=== PATIENT | female | born 1945 | race Caucasian/White ===

== ENCOUNTER 2022-10-22 08:17 | Outpatient (CLI) | payer MEDICARE, SELFPAY ==
--- NOTE | ~2022-10-22 | MM_ITS ---
EXAMINATION: MM screening irwin BI w asa HISTORY: Screening mammogram TECHNIQUE: Craniocaudal and mediolateral oblique 3-D tomosynthesis images were obtained and synthetic 2-D images were generated. CAD analysis was submitted and interpreted. COMPARISON: No prior mammogram is available for comparison at this institution. BREAST PARENCHYMAL COMPOSITION: There are scattered areas of fibroglandular density. FINDINGS: Scattered benign-appearing calcifications are present. RIGHT BREAST: No suspicious mass, calcification, or architectural distortion are identified to sugges t malignancy. LEFT BREAST: There are small masses in the periareolar aspect of the upper outer breast. IMPRESSION: 1. Small masses in the periareolar aspect of the upper outer left breast. which may represent the pat ient's baseline however no comparison is currently available. 2. Comparison with prior mammograms is necessary. BI-RADS Category 0: Incomplete: Needs comparison with prior mammograms. Reviewed, dictated and finalized at location A. FFIN MACHINE OPERATOR IMPRESSION: 1. Small masses in the periareolar aspect of the upper outer left breast. which may represent the patient's baseline however no comparison is currently availa ble. 2. Comparison with prior mammograms is necessary. BI-RADS Category 0: Incomplete: Needs comparison with prior mammograms.
--- NOTE | ~2022-10-22 | DEXA_ITS ---
Bone Density Report Name: AMITA SHABAZZ Age: 77 Sex: Female Ethnicity: White Date of : 1945 Indication: postmenopausal; screening for osteoporosis; hysterectomy; Referring Provider: HEATHER, MATTHEW Siegel Study: Bone densitometry was performed. Exam Date: October 22, 2022 Accession number: [id number] Bone Density: Region BMD T-score Z-score Classification AP Spine(L1-L4) 1.033 -0.1 2.5 Normal Femoral Neck (Left) 0.668 -1.6 0.6 Osteopenia Total Hip (Left) 0.771 -1.4 0.6 Osteopenia Femoral Neck (Right) 0.695 -1.4 0.9 Osteopenia Total Hip (Right) 0.716 -1.9 0.2 Osteopenia Total Hip Mean 0.743 -1.7 0.4 Osteopenia World Health Organization criteria for BMD impression classify patients as: Normal (T-score at or above -1.0), Osteopenia (T-score between -1.0 and -2.5), or Osteoporosis (T-score at or below -2.5). 10-year Fracture Risk(1): Major Osteoporotic Fracture 13% Hip Fracture 3.3% Reported Risk Factors: [place] (), Neck BMD=0.668, BMI=23.2 (1) FRAX(R) Version 3.08. Fracture probability calculated for an untreated patient. Fracture probability may be lower if the patient has received treatment. Clinical Information Provided by Patient: Has used the following medications: Vitamin D, Calcium Has the following medical conditions: Hysterectomy Patient maximum height was 61 Menopause Age: 38 No regular weight bearing exercise Onset of menses at age 12 Number of children 1 Impression: The patient has low bone mass, based on the Right Total Hip T-score. The patient has an estimated ten-year risk of hip fracture of 3.3% and an estimated ten-year risk of major fracture of 13%, based on the WHO FRAX algorithm. Discussion: BONE DENSITY IS LOW AT ONE OR MORE SKELETAL SITES. THE PATIENT'S BMD AND CLINICAL RISK FACTORS CONTRIBUTE TO THIS PATIENT'S INCREASED RISK OF FRACTURE. This patient's lowest T-score is low at one or more skeletal sites. It meets the World Health Organization's (WHO) criteria for ?low bone mass? (T-score between -1.0 and -2.5). The patient's 10-year risk of hip fracture as calculated by FRAX exceeds the threshold where pharmacological therapy is recommended by the National Osteoporosis Foundation (NOF). However, all treatment decisions require clinical judgment and consideration of individual patient factors, including patient preferences, comorbidities, previous drug use, risk factors not captured in the FRAX model (e.g., frailty, falls, vitamin D deficiency, increased bone turnover, interval significant decline in bone density) and possible under or overestimation of fracture risk by FRAX. The patient should follow a healthful lifestyle (good nutrition with adequate calcium and vitamin D, and appropriate weight-bearing exercise). Follow-Up: Consi
== END 2022-10-22 08:18 | disposition home or self-care (01) ==
LOC: ANHIMG 08:32
PROVIDERS: Visit Provider Internal Medicine
DX: Z12.31 Encounter for screening mammogram for malignant neoplasm of breast (principal); Z78.0 Asymptomatic menopausal state; R92.8 Other abnormal and inconclusive findings on diagnostic imaging of breast; M85.852 Other specified disorders of bone density and structure, left thigh; M85.851 Other specified disorders of bone density and structure, right thigh
CPT/HCPCS: 77063; 77067; 77080

== ENCOUNTER 2022-11-16 12:58 | Outpatient (CLI) | payer MEDICARE, SELFPAY ==
--- NOTE | ~2022-11-16 | MMUS_ITS ---
EXAMINATION: MM diagnostic irwin LT w asa, US breast LT limited HISTORY: Small masses in the periareolar area of the upper left breast were noted on 10/22/2022 screen ing mammogram TECHNIQUE: Additional 3-D tomosynthesis images of the left breast were performed and synthetic 2-D im ages were generated. CAD analysis was submitted and interpreted. High resolution upper outer quadrant left breast ultrasound was performed. COMPARISON: 10/22/2022 screening mammogram FINDINGS: MAMMOGRAPHIC FINDINGS: No suspicious mass or architectural distortion, skin thickening or retraction or malignant calcificat ion is noted. ULTRASOUND: No suspicious mass or shadowing is detected. IMPRESSION: 1. No mammographic evidence of malignancy 2. Routine annual mammographic screening is recommended BI-RADS Category 1: Negative Reviewed, dictated and finalized at location A. STOCK MACHINE LOADER IMPRESSION: 1. No mammographic evidence of malignancy 2. Routine annual mammographic screening is recommended BI-RADS Category 1: Negative
== END 2022-11-16 12:59 | disposition home or self-care (01) ==
PROVIDERS: Visit Provider Internal Medicine
DX: R92.8 Other abnormal and inconclusive findings on diagnostic imaging of breast (principal)
CPT/HCPCS: 76642; 77061; 77065; G0279

== ENCOUNTER 2025-10-10 07:53 | Outpatient (CLI) | payer MEDICARE, SELFPAY ==
--- NOTE | ~2025-10-10 | MM_ITS ---
EXAMINATION: MM screening [facility] BI w asa HISTORY: Screening TECHNIQUE: Craniocaudal and mediolateral oblique 3-D tomosynthesis images were obtained and synthetic 2-D images were generated. CAD analysis was submitted and interpreted. COMPARISON: Comparison to multiple prior studies sequentially, with oldest reviewed study dated 07/21/2018. BREAST PARENCHYMAL COMPOSITION: Not Dense: There are scattered areas of fibroglandular density. FINDINGS: There is no evidence of suspicious mass, calcification, or architectural distortion to suggest malignancy in either breast. Scattered benign-appearing calcifications are present. IMPRESSION: 1. No mammographic evidence of malignancy. 2. Recommend routine screening mammography in one year. BI-RADS Category 2: Benign finding(s). Reviewed, dictated and finalized at location B. 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
--- OUTSIDE RECORDS SUMMARY | 2025-10-10 08:00 | XMS_ITS | Encounter Summary ---
Author Organization [facility] Address [address] [place] [address] Care Team Providers Care Parliamentary Librarian Name Role Phone Sandy Coates MD Primary Care Provider [phone] Encounter Details Date Type Department Care Team (Late st Contact Info) Description 04/13/2021 Prep for Procedure [facility] [place], [place] [id number] Brown Weinstein MD [address] [id number] Social History Tobacco Use Types Packs/Day Years Used Date Smoking Tobacco: Former Cigarettes Q uit: 1997 Smokeless Tobacco: Never Alcohol Use Standard Drinks/Week Comments No 0 (1 standard drink = 0.6 oz pur e alcohol) AUDIT-C Answer Date Recorded Frequency of Alcohol Consumption Never 04/27/2019 Average Number of Drinks Not on file 019 Frequency of Binge Drinking Not on file 05/2019 Comments No Sex and Gender Information Value Date Recorded Sex Assigned at Not on file Legal Sex Female 8:34 PM CDT Gender Identity Not on file Sexual Orientation Not on file COVID-19 Exposure Response Date Recorded In the last month, have you been in contact with someone who was confirmed or suspected to have Coronavirus / COVID-19? No / Unsure 04/15/2021 8:23 AM CDT documented as of this encounter Plan of Treatment Not on file documented as of this encounter Results * CORONAVIRUS (COVID 19) PCR - [facility] (04/13/2021 9:20 AM CDT) CORONAVIRUS SARS COV 2 PCR (RESP) NEGATIVE NEGATIVE 04/13/2021 8:55 PM CDT [facility] Comment: NEGATIVE RESULTS DO NOT PRECLUDE SARS-CoV-2 INFECTION AND SHOULD NOT BE USED THE SOLE BASIS FOR PATIENT MANAGEMENT DECISIONS. NEGATIVE RESULTS MUST BE COMBINED WITH CLINICAL OBSERVATIONS, PATIENT HISTORY, AND EPIDEMIOLOGICAL INFORMATION. THE SARS-CoV-2 TEST HAS BEEN AUTHORIZED BY THE FDA UNDER AN EUA FOR USE BY AUTHORIZED LABORATORIES. FIRST TEST UNKNOWN 04/13/2021 9:42 AM CDT [facility] EMPLOYED IN HEALTHCARE UNKNOWN 04/13/2021 9:42 AM CDT [facility] SYMPTOMATIC DEFINED BY CDC UNKNOWN 04/13/2021 9:42 AM CDT [facility] HOSPITALIZATION STATUS NO 04/13/2021 9:42 AM CDT [facility] PATIENT IN ICU NO 04/13/2021 9:42 AM CDT [facility] RESIDENT OF [facility] UNKNOWN 04/13/2021 9:42 AM CDT [facility] NASOPHARYNGEAL SWAB / Unknown 04/13/2021 9:20 AM CDT Brown Weinstein MD MICROBIOLOGY - GENERAL PATRICIA MCMAHON Final Result [facility] [address] [place] [address], [place] [phone] [facility] [address] [place] [address], [place] [phone] [id number] documented in this encounter Visit Diagnoses Diagnosis Colon cancer screening- Primary Special screening for malignant neoplasms, colon documented in this encounter Additional Health Concerns Infection Onset Date Last Indicated Resolved Time COVID-19 Rule Out 04/13/2021 04/13/2021 04/13/2021 8:55 PM CDT documented as of this encounter Care Teams Parliamentary Librarian Relationship Specialty Start Date End Date Sandy Coates MD PCP - General INTERNAL MEDICINE 04/26/19 documented as of this encounter
--- OUTSIDE RECORDS SUMMARY | 2025-10-10 08:00 | XMS_ITS | Clinical Summary ---
Author Organization [facility] Address [address] [place] [address] Care Team Providers Care Chemical Pumper Name Role Phone Sandy Coates MD Primary Care Provider [phone] Allergies Active Allergy Reactions Criticality Noted Date Comments Clarithromycin Throat swelling 04/08/2021 Medications amlodipine 5 MG tablet Take 5 mg by mouth daily. Active meloxicam 7.5 MG tablet Take 7.5 mg by mouth daily. Active losartan 100 MG tablet Take 100 mg by mouth daily. Active omeprazole 20 MG capsule Take 20 mg by mouth daily. Active citalopram 20 MG tablet Take 20 mg by mouth daily. Active rosuvastatin 10 MG tablet Take by mouth nightly at bedtime. Active verapamil 240 MG ER tablet Take 240 mg by mouth daily. Active Calcium Carb-Cholecalci ferol (CALCIUM 500+D3 OR) Take by mouth 2 (two) times a day. Active aspirin EC (ASPIRIN EC) 81 MG tablet Take 81 mg by mouth daily. Active Active Problems No known active problems Family History Medical History Relation Comments Aneurysm Mother Relation Status Comments Mother Social History Tobacco Use Types Packs/Day Years [...] on file Sexual Orientation Not on file Last Filed Vital Signs Vital Sign Reading Time Taken Comments Blood Pressure 138/65 04/15/2021 10:36 AM CDT Pulse 65 04/15/2021 10:36 AM CDT Temperature 36.4 C (97.5 F) 04/15/2021 10:03 AM CDT Respiratory Rate 17 04/15/2021 10:36 AM CDT Oxygen Saturation 98% 04/15/2021 10:36 AM CDT Inhaled Oxygen Concentration - - Weight 61.2 kg (135 lb) 04/08/2021 9:38 AM CDT Height 152.4 cm (5') 04/08/2021 9:38 AM CDT Body Mass Index 26.37 04/08/2021 9:38 AM CDT Plan of Treatment Health Maintenance Due Date Last Done Comments DTaP, Tdap and Td Vaccines (1 - Tdap) 1964 Annual Medicare Wellness Visit 2008 Dexa Scan (General) 2008 RSV Immunization or 60+ Years (1 - 1-dose 75+ series) 2018 Zoster Vaccines (2 of 3) 05/28/2019 04/02/2019, 05/2019 COVID-19 Vaccine (4 - season) 2025 08/08/2023, 02/03/2021, 01/13/2021 Influenza Adult (#1) 2025 08/17/2023, 08/10/2022, 07/17/2020, Additional history exists Pneumococcal Vaccine: 50+ Years Completed 08/17/2023, 07/03/2015 Hepatitis A Vaccines Aged Out No long er eligible based on patient's age to complete this topic Meningococcal B Vaccine Aged Out No l onger eligible based on patient's age to complete this topic Meningococcal Vaccine Aged Out No nick yamil eligible based on patient's age to complete this topic RSV Immunizations Under 20 Months Aged Out No longer eligible based on patient's age to complete this topic Medical Devices Implanted Type Area Interior Design Program Chair Device Identifier Shelf Expiration Date Model / Serial / Lot Iol [employer] Zcboo - [id number] Implanted:Qty: 1 on 05/02/2019 by Petar Chavez MD at [facility] Lens Right: Eye [employer] 03/14/2023 [id number] / [id number] / Insurance [facility] MEDICARE Care Teams Chemical Pumper Relationship Specialty Start Date End Date Sandy Coates MD PCP - General INTERNAL MEDICINE 04/26/19
--- OUTSIDE RECORDS SUMMARY | 2025-10-10 08:00 | XMS_ITS | Clinical Summary ---
Author Organization [facility] Address [address] [place] [address] Care Team Providers Care Chain Saw Operator Name Role Phone Sandy Coates MD Primary Care Provider [phone] Curtis Sheikh DO Unavailable [phone] Allergies Active Allergy Reactions Criticality Noted Date Comments Clarithromycin Other (see Comments),Unknown Medications losartan (COZAAR) 100 MG Tablet 06/22/2022 Active verapamil (CALAN-SR) 240 MG Tablet Controlled Release 06/22/2022 Active citalopram (CeleXA) 20 MG Tablet 06/22/2022 Active Calcium Carb-Cholecalcif bobby 500-10 MG-MCG Tablet Take by mouth. Active amLODIPine (NORVASC) 5 MG Tablet 06/23/2022 Active aspirin EC 81 MG Tablet Delayed Response Take 81 mg by mouth daily. Active rosuvastatin (CRESTOR) 10 MG Tablet 06/23/2022 Active meloxicam (MOBIC) 7.5 MG Tablet 06/23/2022 Active omeprazole (PriLOSEC) 20 MG CAPSULE DELAYED RELEASE 06/23/2022 Active ferrous sulfate 325 (65 Fe) MG TabletIndication s:Refractory anemia, unspecified Take 1 Tablet by mouth daily. 30 Tablet 04/02/2024 Active Active Problems Problem Noted Date Diagnosed Date HTN (hypertension) 10/01/2024 Iron deficiency anemia, unspecified 04/05/2024 Refractory anemia, unspecified 10/11/2022 Encounters Date Type Department Care Team Description 09/30/2025 9:15 AM COMBINATION PRESSER Office Visit [facility] [address] [address] Neetu Peres, CLIENT SALES AND SERVICE OFFICER, REAMING PRESS OPERATOR Refractory anemia, unspecified (Primary Dx); Iron deficiency anemia, unspecified iron deficiency anemia type; Elevated serum immunoglobulin free light chains 09/30/2025 9:00 AM COMBINATION PRESSER Lab [facility] [address] [address] Lab[facility] Iron deficiency anemia, unspecified iron deficiency anemia type; Elevated serum immunoglobulin free light chains 09/30/2025 Travel from Last 3 Months Immunizations Immunization Administration Dates Next Due COVID-19, Mrna, Lnp-s, Pf, 50 mcg/0.5 mL 023 Influenza, Recombinant, Quadrivalent,injectable, Pf 08/17/2023,08/10/2022 Influenza, high-dose, trivalent, PF 07/17/2020,1 Pneumococcal conjugate PCV20 , polysaccharide [id number] conjugate, adjuvant, PF 08/17/2023 Zoster Vaccine, live 04/02/2019,01/25/2019 Family History Medical History Relation Name Comments Aneurysm Mother Relation Name Status Comments Mother Social History Tobacco Use Types Packs/Day Years Used Date Smoking Tobacco: Former Cigarettes 0 Q uit: 09/20/1981 Smokeless Tobacco: Never Tobacco Cessation:Counseling Given: Not Answered Alcohol Use Standard Drinks/Week Comments Never 0 (1 standard drink = 0.6 oz pur e alcohol) Comments Unknown Sex and Gender Information Value Date Recorded Sex Assigned at Not on file Legal Sex Female 7:35 PM CDT Gender Identity Not on file Sexual Orientation Not on file Last Filed Vital Signs Vital Sign Reading Time Taken Comments Blood Pressure 132/84 09/30/2025 9:13 AM COMBINATION PRESSER Pulse 71 09/30/2025 9:13 AM COMBINATION PRESSER Temperature 36.7 C (98.1 F) 09/30/2025 9:13 AM COMBINATION PRESSER Respiratory Rate 18 09/30/2025 9:13 AM COMBINATION PRESSER Oxygen Saturation 98% 09/30/2025 9:13 AM COMBINATION PRESSER Inhaled Oxygen Concentration - - Weight 54.5 kg (120 lb 3.2 oz) 09/30/2025 9:13 A M COMBINATION PRESSER Height 154.9 cm (5' 1) 09/30/2025 9:13 AM COMBINATION PRESSER Body Mass Index 22.71 09/30/2025 9:13 AM COMBINATION PRESSER Plan of Treatment Upcoming Encounters Date Type Department Care Team (Late st Contact Info) Description 03/31/2026 9:00 AM CDT Lab [facility] [address] [address] Lab, Cc [facility] 03/31/2026 9:15 AM CDT Office Visit [facility] [address] [address] Curtis Sheikh, [address] [place] [id number] Health Maintenance Due Date Last Done Comments Hepatitis C Virus (HCV) Screening 1945 TdaP Immunization 1945 Zoster Immunization (2 of 3) 05/28/2019 04/02/2019, 01/25/2019 DEXA Bone Density 10/24/2021 10/24/2019 Medicare Initial AWV [id number] 11/21/2022 SARS-COV-2 Immunization ( season) 2026 07/31/2025, 03/26/2025, 08/28/2024, Additional history exists Pneumococcal Immunization (50+ years) Completed 08/17/2023, 07/03/2015 Respiratory Syncytial Virus (RSV) Immunization (Adult) Completed 09/19/2023 Influenza Immunization Completed , 08/22/2024, 08/17/2023, Additional history exists Hepatitis B Immunization Aged Out No longer eligible based on patient's age to complete this topic Human Papillomavirus (HPV) Immunization Aged Out No longer eligible based on patient's age to complete this topic Meningococcal Immunization (ACWY) Aged Out No longer eligible based on patient's age to complete this topic Rotavirus Immunization Aged Out No lo nger eligible based on patient's age to complete this topic Procedures Procedure Name Priority Date/Time Associated Diagnosis Comments SERUM FREE LIGHT CHAINS, [place] Routine 09/30/2025 9:02 AM COMBINATION PRESSER CBC WITH AUTO DIFF OH Routine 09/30/2025 9:02 AM COMBINATION PRESSER CMP (COMPREHENSIVE METABOLIC PANEL) Routine 09/30/2025 9:02 AM COMBINATION PRESSER Iron deficiency anemia, unspecified iron deficiency anemia type Elevated serum immunoglobulin free light chains IRON W/ IRON BINDING CAPACITY OH Routine 09/30/2025 9:02 AM COMBINATION PRESSER Iron deficiency anemia, unspecified iron deficiency anemia type Elevated serum immunoglobulin free light chains FERRITIN Routine 09/30/2025 9:02 AM COMBINATION PRESSER Iron deficiency anemia, unspecified iron deficiency anemia type Elevated serum immunoglobulin free light chains ELECTROPHORESIS W/ TOTAL PROTEIN SERUM Routine 09/30/2025 9:02 AM COMBINATION PRESSER Iron deficiency anemia, unspecified iron deficiency anemia type Elevated serum immunoglobulin free light chains IMMUNOFIXATION, SERUM OH Routine 09/30/2025 9:02 AM COMBINATION PRESSER Iron deficiency anemia, unspecified iron deficiency anemia type Elevated serum immunoglobulin free light chains IMMUNOGLOBULIN IGA, IGG & IGM QUANT Routine 09/30/2025 9:02 AM COMBINATION PRESSER Iron deficiency anemia, unspecified iron deficiency anemia type Elevated serum immunoglobulin free light chains from Last 3 Months Results * (ABNORMAL) SERUM FREE LIGHT CHAINS, [place] (09/30/2025 9:02 AM COMBINATION PRESSER) FREE KAPPA LT CHAINS 29.6(H) 2.9 - 20.7 mg/L [facility] FREE LAMBDA LT CHAINS 22.9 4.2 - 27.6 mg/L [facility] KAPPA/LAMBDA RATIO 1.29 0.22 - 1.74 [facility] 09/30/2025 9:02 AM COMBINATION PRESSER us Juhi Alanis CLIENT SALES AND SERVICE OFFICER, REAMING PRESS OPERATOR LAB SEND OUTS Fin al Result [facility] [address] [place] [address], * IRON W/ IRON BINDING CAPACITY [place] (09/30/2025 9:02 AM COMBINATION PRESSER) IRON 87 50 - 212 ug/dL [facility] UIBC 226 155 - 355 ug/dL [facility] TIBC 313 261 - 478 ug/dl [facility] % Saturation 28 20 - 50 % [facility] 09/30/2025 9:02 AM COMBINATION PRESSER Narrative [facility] - 09/30/2025 10:23 AM COMBINATION PRESSER Release to patient->Immediate us Juhi Alanis APRN, REAMING PRESS OPERATOR LAB SEND OUTS Fin al Result Performing Organization Address [facility] Co de Phone Number [facility] [place] [address] [place] [address], [place] [phone] * IMMUNOFIXATION, SERUM [place] (09/30/2025 9:02 AM COMBINATION PRESSER) IMMUNOFIXATION RESULT, SERUM COMMENT [facility] Comment:NO MONOCLONALITY DET ECTED. 09/30/2025 9:02 AM COMBINATION PRESSER Narrative [facility] - 10/02/2025 3:09 PM COMBINATION PRESSER TESTING PERFORMED AT: [] [facility], [address] [place] [address], [address], PHONE: [phone], CAPTAIN ROOM SERVICE: LUISA BAUTISTA, PHD Release to patient->Immediate us Juhi Alanis APRN, REAMING PRESS OPERATOR LAB SEND OUTS Fin al Result Performing Organization Address [facility]/ZIP Co de Phone Number [facility] [address] [place] [address], * (ABNORMAL) CBC WITH AUTO DIFF [place] (09/30/2025 9:02 AM COMBINATION PRESSER) WBC 6.0 4.0 - 10.0 10*3/uL [facility] HGB 11.9 11.2 - 15.7 g/dL [facility] HCT 36.6 34.1 - 44.9 % [facility] PLT 262 163 - 369 10*3/uL [facility] MPV 9.2(L) 9.4 - 12.4 fL [facility] RBC 3.87(L) 3.93 - 5.22 10*6/uL [facility] MCV 95 79 - 95 fL [facility] MCH 30.7 25.6 - 32.2 pg [facility] MCHC 32.5 32.2 - 36.5 g/dL [facility] RDW 12.8 11.6 - 14.4 % [facility] Neutrophils % 59.6 36.0 - 66.0 % [facility] Lymphocytes % 28.6 19.0 - 40.0 % [facility] Monocytes % 6.1 4.1 - 12.1 % [facility] Eosinophils % 4.3(H) 0.0 - 3.5 % [facility] Basophils % 1.2(H) 0.0 - 1.0 % [facility] Absolute Neutrophils 3.6 1.4 - 6.6 10*3/uL [facility] Absolute Lymphocytes 1.7 0.8 - 4.0 10*3/uL [facility] Absolute Monocytes 0.4 0.2 - 1.2 10*3/uL [facility] Absolute Eosinophils 0.3 0.0 - 0.4 10*3/uL [facility] Absolute Basophils 0.1 0.0 - 0.1 10*3/uL [facility] 09/30/2025 9:02 AM COMBINATION PRESSER us Juhi Alanis CLIENT SALES AND SERVICE OFFICER, REAMING PRESS OPERATOR LAB SEND OUTS Fin al Result [facility] [address] [place] [address], [place] [phone] * (ABNORMAL) IMMUNOGLOBULIN IGA, IGG & IGM QUANT (09/30/2025 9:02 AM COMBINATION PRESSER) IGG 1,181 635 - 1,741 mg/dL [facility] IGA 436(H) 66 - 433 mg/dL [facility] IGM <20(L) 45 - 281 mg/dL [facility] Blood 09/30/2025 9:02 AM COMBINATION PRESSER Narrative [facility] - 09/30/2025 2:20 PM COMBINATION PRESSER Release to patient->Immediate Juhi Bañuelosei CLIENT SALES AND SERVICE OFFICER, REAMING PRESS OPERATOR CHEMISTRY ORDERABLE S Final Result [facility] [place] [address] [place] [address], [place] [phone] * FERRITIN (09/30/2025 9:02 AM COMBINATION PRESSER) Ferritin 180 11 - 307 ng/mL [facility] Blood 09/30/2025 9:02 AM COMBINATION PRESSER Narrative [facility] - 09/30/2025 2:12 PM COMBINATION PRESSER Release to patient->Immediate Juhi Bañuelosei CLIENT SALES AND SERVICE OFFICER, REAMING PRESS OPERATOR CHEMISTRY ORDERABLE S Final Result [facility] [address] [place] [address], [place] [phone] * ELECTROPHORESIS W/ TOTAL PROTEIN SERUM (09/30/2025 9:02 AM COMBINATION PRESSER) PROTEIN, TOTAL, SERUM 6.9 6.0 - 8.5 G/DL [facility] ALBUMIN 3.5 2.9 - 4.4 G/DL [facility] [id number] 0.3 0.0 - 0.4 G/DL [facility] [id number] 0.9 0.4 - 1.0 G/DL [facility] BETA GLOBULIN 1.2 0.7 - 1.3 G/DL [facility] GAMMA GLOBULIN 1.1 0.4 - 1.8 G/DL [facility] M-SPIKE NOT OBSERVED NOT OBSERVED G/DL [facility] GLOBULIN, TOTAL 3.4 2.2 - 3.9 G/DL [facility] A/G RATIO 1.0 0.7 - 1.7 [facility] PLEASE NOTE: [facility] Comment: PROTEIN ELECTROPHORESIS SCAN WILL FOLLOW VIA COMPUTER, MAIL, OR UTILITY ARBORIST DELIVERY. PDF . [facility] Blood 09/30/2025 9:02 AM COMBINATION PRESSER Narrative [facility] - 10/01/2025 8:19 PM COMBINATION PRESSER TESTING PERFORMED AT: [] LAB[address], [address], PHONE: [phone], CAPTAIN ROOM SERVICE: LUISA BAUTISTA, PHD Release to patient->Immediate Juhi Alanis APRN, CNP CHEMISTRY ORDERABLE S Final Result [facility] Care [address] [place] [address], * CMP (COMPREHENSIVE METABOLIC PANEL) (09/30/2025 9:02 AM COMBINATION PRESSER) Glucose 88 70 - 105 mg/dL [facility] Blood Urea Nitrogen 17 7 - 25 mg/dL [facility] Creatinine 0.7 0.6 - 1.2 mg/dL [facility] Sodium 142 136 - 145 mEq/L [facility] Potassium 3.9 3.5 - 5.1 mEq/L [facility] Chloride 104 98 - 107 mEq/L [facility] Bicarbonate 28 21 - 31 mEq/L [facility] Total Bilirubin 0.4 0.3 - 1.0 mg/dL [facility] Alk. Phosphatase 57 34 - 104 U/L [facility] Aspartate Aminotransferase 15 13 - 39 U/L [facility] Alanine Aminotransferase 12 7 - 52 U/L [facility] Total Protein 6.8 6.4 - 8.9 g/dL [facility] Albumin 4.0 3.5 - 5.7 g/dL [facility] Calcium 9.1 8.6 - 10.3 mg/dL [facility] Anion Gap 13.9 7.0 - 15.0 mEq/L [facility] Globulin 2.8 2.0 - 3.5 g/dL [facility] EGFR 86 >60 ml/min/1. 73m2 [facility] Comment: This eGFR is calculated using 2020 CKD-EPI Creatinine equation without race modifier based on the NKF-ASN task force recommendations Equation: eKCT=764*min(SCr/k,1)a*max(SCr/k,1)-1.200*0.9938Age*1.012 (if female), where SCr is serum creatinine, k is 0.7 for females and 0.9 for males, and a is -0.241 for females and -0.302 for males Blood 09/30/2025 9:02 AM COMBINATION PRESSER Narrative [facility] - 09/30/2025 10:23 AM COMBINATION PRESSER Release to patient->Immediate IS THE PATIENT REQUIRED TO BE FASTING FOR 8 HOURS?->No us Juhi Alanis CLIENT SALES AND SERVICE OFFICER, REAMING PRESS OPERATOR CHEMISTRY ORDERABLE S Final Result [facility] [place] [address], from Last 3 [place] [address] MEDICARE C AET[employer] Care Teams Chain Saw Operator Relationship Specialty Start Date End Date Sandy Coates MD [address] [place] [id number] PCP - General Internal Medicine 08/27/22 Curtis Sheikh DO [address] [place] [phone] Consulting Physician Oncology 08/27/22
--- OUTSIDE RECORDS SUMMARY | 2025-10-10 08:01 | XMS_ITS | Clinical Summary ---
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 30 Tablet 4 Active citalopram (CeleXA) 20 mg tablet TAKE ONE TABLET BY MOUTH ONCE DAILY 90 Tablet 3 08/20/2025 5:29 PM CDT 4 Active Sodium Fluoride (PreviDent 5000 Booster Plus) 1.1 % Paste USE TO BRUSH TEETH AT BEDTIME. 100 mL 3 01/17/2025 4:53 PM COMMERCIAL BANKER 5 Active meloxicam (MOBIC) 7.5 mg tablet TAKE ONE TABLET BY MOUTH ONCE DAILY 90 Tablet 3 09/13/2025 12:20 PM CDT 5 Active omeprazole (PriLOSEC) 20 mg Capsule, Delayed Release(E.C.) TAKE ONE CAPSULE BY MOUTH ONCE DAILY 30 MINUTES TO 1 HOUR BEFORE A MEAL 90 Capsule 3 09/23/2025 5:14 PM COMMERCIAL BANKER 5 Active rosuvastatin (Crestor) 10 mg tablet TAKE ONE TABLET BY MOUTH ONCE DAILY 90 Tablet 3 09/23/2025 5:14 PM COMMERCIAL BANKER 5 Active amLODIPine (NORVASC) 5 mg tablet Take 1 Tablet (5 mg) by mouth daily. 90 Tablet 1 08/20/2025 5:29 PM CDT 5 Active verapamiL (CALAN SR) 240 mg Sustained Release tablet Take 1 Tablet (240 mg) by mouth daily with food. 90 Tablet 1 09/23/2025 5:14 PM COMMERCIAL BANKER 5 Active losartan (Cozaar) 100 mg tablet Take 1 Tablet (100 mg) by mouth daily. 90 Tablet 3 09/23/2025 5:14 PM COMMERCIAL BANKER 5 Active losartan (Cozaar) 100 mg tablet TAKE ONE TABLET BY MOUTH ONCE DAILY 90 Tablet 3 06/27/2025 11:59 AM CDT 4 09/23/20 25 Discontinu ed(Reorder ) Encounters Date Type Department Care Team Description 09/18/2025 External Device Data [facility]STRACTION Provider, Abstract 09/18/2025 External Device Data [facility] Provider, Abstract from Last 3 Months Immunizations Immunization Administration Dates Next Due (AREXVY)(60 YR UP) RSV, GEORGE MBINANT, PROTEIN SUBUNIT RSVPREF, ADJUVANT RECONSTITUTED, 0.5 ML, PF 09/19/2023 INFLUENZA VACCINE HIGH DOSE TRIVALENT SPLIT VIRUS, (65 YR UP), 0.5ML (PF), IM 07/31/2025 Social History Tobacco Use Types Packs/Day Years Used Date Smoking Tobacco: Never Assessed Comments Unknown Sex and Gender Information Value Date Recorded Sex Assigned at Not on file Legal Sex Female 3:26 PM CDT Gender Identity Not on file Sexual Orientation Not on file Plan of Treatment Health Maintenance Due Date Last Done Comments DTAP/TDAP/TD VACCINES (1 - Tdap) 1964 PNEUMOCOCCAL VACCINE 50+ YEARS (1 of 1 - PCV) 08/12/19 93 ZOSTER VACCINE (1 of 2) 1993 OSTEOPOROSIS SCREENING 2008 RSV VACCINE (60+ or ) Completed 09/19/2023 INFLUENZA VACCINE Completed 07/31/2025 Insurance RX AETNA Medicare Part D RX REED PLANS (INTERNAL) [facility] Internal Plans
== END 2025-10-10 07:54 | disposition home or self-care (01) ==
LOC: CHSIMG 07:57
PROVIDERS: PCP Internal Medicine; Visit Provider Internal Medicine
DX: Z12.31 Encounter for screening mammogram for malignant neoplasm of breast (principal)
CPT/HCPCS: 77063; 77067